=== PATIENT | male | born 1965 | race Caucasian/White ===

== ENCOUNTER 2017-04-22 19:26 | Inpatient (IN) | payer BC ==
[~2017-04-22] VITALS: Ht 177.8 cm; Wt 94.3 kg
--- NOTE | 2017-04-22 19:39 | NUR ---
TO BED 1 AMBULATORY C/O L SIDED CP WITH INTERMITTENT SOB ALL DAY. PT AAOX4 NO ACUTE DISTRESS NOTED, RESP EVEN AND UNLABORED. SKIN WARM, NONDIAPHORETIC. PLACE PT ON CARDAIC MONITORING, CONTINUOUS POX. ER MD AT BEDSIDE TO EVAL PT.
[2017-04-22 20:13] LABS: CALCIUM, SERUM 9.1 mg/dL (8.5-10.1); CARBON DIOXIDE 26 mmol/L (21-32); CHLORIDE 101 mmol/L (98-107); CREATININE 1.2 mg/dL (0.6-1.3); GLUCOSE 90 mg/dL (74-106); SODIUM SERUM 137 mmol/L (136-145); UREA NITROGEN, BLOOD 18 mg/dL (7-18)
[2017-04-22 20:15] LABS: BASOPHILS # (AUTO) 0.1 /CMM (0.0-0.2); BASOPHILS % (AUTO) 0.5 % (0.0-2.0); EOSINOPHILS # (AUTO) 0.1 /CMM (0.0-0.7); EOSINOPHILS % (AUTO) 1.4 % (0.0-6.0); HEMATOCRIT 42 % (39-51); HEMOGLOBIN 14.2 g/dL (13.5-17.5); LYMPHOCYTES # (AUTO) 2.5 /CMM (0.8-4.8); LYMPHOCYTES % (AUTO) 24.4 % (20.0-44.0); MEAN CORPUSCULAR HEMOGLOBIN 31 PG (26.0-33.0); MEAN CORPUSCULAR HGB CONC 34 g/dl (31.0-36.0); MEAN CORPUSCULAR VOLUME 90 fL (80-96); MONOCYTES # (AUTO) 1.2 /CMM (0.1-1.30); MONOCYTES % (AUTO) 11.3 % (2.0-12.0); NEUTROPHILS # (AUTO) 6.4 /CMM (1.8-8.9); NEUTROPHILS % (AUTO) 62.4 % (43.0-81.0); PLATELET COUNT (AUTO) 245 /CMM (150-450); RDW COEFFICIENT OF VARIATION 12.5 (11.5-15.0); RED BLOOD CELL COUNT(AUTO) 4.65 MIL/uL (4.5-6.0); WHITE BLOOD COUNT (AUTO) 10.2 K/uL (4.3-11.0)
[2017-04-22 20:18] LABS: INR 1.01 (0.87-1.13); PROTHROMBIN TIME 10.5 SECS (9.5-12.7)
[2017-04-22 20:21] LABS: TROPONIN I < 0.017 ng/mL (0.00-0.056)
[2017-04-22 20:26] LABS: ALANINE AMINOTRANSFERASE 124 U/L (12-78); ALBUMIN 4.2 g/dL (3.4-5.0); ALKALINE PHOSPHATASE 172 U/L (46-116); ASPARTATE AMINOTRANSFERASE 65 U/L (15-37); B-TYPE NATRIURETIC PEPTIDE 30 PG/ML (0-125); BILIRUBIN,DIRECT 0.1 mg/dL (0.0-0.2); BILIRUBIN,TOTAL 0.5 mg/dL (0.2-1.0); TOTAL PROTEIN, SERUM 7.8 g/dL (6.4-8.2)
--- NOTE | 2017-04-22 20:43 | NUR ---
PT TRANSPORTED TO RADIOLOGY FOR CT PULMONARY ANGIOGRAM.
--- NOTE | 2017-04-22 20:55 | NUR ---
PT BACK FROM RADIOLOGY. PENDING CT PULMONARY ANGIOGRAM RESULT.
--- NOTE | 2017-04-22 21:32 | NUR ---
RESP THERAPIST AT BEDSIDE.
--- NOTE | 2017-04-22 21:50 | NUR ---
ER SPOKE TO DR. CONRADO NUNO PT ADMISSION. REPORT CALLED TO REAL ESTATE TRANSACTION COORDINATOR FAWAD. WILL TRANSPORT PT VIA ACLS PROTOCOL.
[2017-04-22 22:25] VITALS: BP 127/75
--- NOTE | 2017-04-22 22:25 | NUR ---
RN NOTES RECEIVED PATIENT FROM ER FOR DX CHEST PAIN. AO X 3, ABLE TO MAKE NEEDS KNOWN. NO ACUTE DISTRESS NOTED. DENIES ANY PAIN AT THIS TIME. SKIN INTACT. TELE READING SR 64. IV SITE PATENT, INTACT; FLUSHED. PATIENT IS AMBULATORY. ON LOW BED WITH BILATERAL UPPER SIDE RAILS UP. CALL LIGHT WITHIN EASY REACH. WILL CONTINUE TO MONITOR.
[2017-04-22 22:46] VITALS: BP 127/75
[2017-04-23] VITALS: BP 119/72
[2017-04-23 04:00] VITALS: BP 116/63
--- NOTE | 2017-04-23 06:09 | NUR ---
RN NOTES PATIENT ASLEEP, EASILY AROUSABLE. RESPIRATIONS EVEN. NO SIGNS OF PAIN NOTED. KEPT NPO FOR US OF ABDOMEN. NEEDS ATTENDED. SAFETY PRECAUTIONS AND COMFORT MEASURES IN PLACE. WILL GIVE REPORT TO DAY SHIFT FOR CONTINUITY OF CARE.
[2017-04-23 06:48] LABS: BASOPHILS % (AUTO) 0.4 % (0.0-2.0); EOSINOPHILS # (AUTO) 0.2 /CMM (0.0-0.7); EOSINOPHILS % (AUTO) 2.8 % (0.0-6.0); HEMATOCRIT 39 % (39-51); HEMOGLOBIN 13.3 g/dL (13.5-17.5); LYMPHOCYTES # (AUTO) 1.7 /CMM (0.8-4.8); LYMPHOCYTES % (AUTO) 25.7 % (20.0-44.0); MEAN CORPUSCULAR HEMOGLOBIN 31 PG (26.0-33.0); MEAN CORPUSCULAR HGB CONC 34 g/dl (31.0-36.0); MEAN CORPUSCULAR VOLUME 90 fL (80-96); MONOCYTES # (AUTO) 0.8 /CMM (0.1-1.30); MONOCYTES % (AUTO) 12.1 % (2.0-12.0); NEUTROPHILS # (AUTO) 3.9 /CMM (1.8-8.9); PLATELET COUNT (AUTO) 213 /CMM (150-450); RDW COEFFICIENT OF VARIATION 12.5 (11.5-15.0); RED BLOOD CELL COUNT(AUTO) 4.31 MIL/uL (4.5-6.0); WHITE BLOOD COUNT (AUTO) 6.5 K/uL (4.3-11.0)
[2017-04-23 07:07] VITALS: BP 109/71
[2017-04-23 07:17] LABS: PROTHROMBIN TIME 10.7 SECS (9.5-12.7)
--- NOTE | 2017-04-23 07:30 | NUR ---
received pt. alert and oriented x4.no complaints offered.npo for ultrasound,
[2017-04-23 07:37] LABS: CALCIUM, SERUM 8.4 mg/dL (8.5-10.1); MAGNESIUM 1.8 mg/dL (1.8-2.4); PHOSPHORUS 3.9 mg/dL (2.5-4.9); POTASSIUM 3.9 mmol/L (3.5-5.1)
--- NOTE | 2017-04-23 08:00 | NUR ---
us tech called to determine time of arrival for pt,s ultrasound.pt. informed.
[2017-04-23] MEDS ORDERED: MULT-24 PO (09:39)
--- NOTE | 2017-04-23 10:40 | NUR ---
nuclear medical technologist here for pt.remains npo.pleasant.
--- NOTE | 2017-04-23 11:30 | NUR ---
Ladan MUNOZ IN-PLANS TO ORDER CARDIAC CONSULT.
[2017-04-23 11:40] LABS: APPEARANCE,URINE CLEAR (CLEAR); BILIRUBIN,URINE NEGATIVE (NEGATIVE); BLOOD, URINE NEGATIVE Ery/uL (NEGATIVE); COLOR,URINE YELLOW (YELLOW); KETONES,URINE TRACE (NEGATIVE); LEUKOCYTE ESTERASE ,URINE NEGATIVE (NEGATIVE); NITRITE, URINE NEGATIVE (NEGATIVE); PROTEIN,URINE NEGATIVE (NEGATIVE); UGLUCOSE NEGATIVE (NEGATIVE); UROBILINOGEN,URINE 0.2 EU/dL (0.2)
[2017-04-23 12:00] VITALS: BP 143/89
--- NOTE | 2017-04-23 13:00 | NUR ---
ULTRASOUND DONE-FOOD ORDERED.
[2017-04-23 13:36] LABS: BACTERIA,URINE Rare /HPF (None Seen); RBC,URINE 0-2 /HPF (0-2); SQUAMOUS EPITHELIAL CELL,UR Rare /HPF (None Seen); WBC,URINE 0-2 /HPF (0-3)
--- NOTE | 2017-04-23 14:00 | NUR ---
PT. INFORMED NURSE HE WAS LEAVING TODAY WHETHER HOUSE DETECTIVE CAME IN OR NOT.
--- NOTE | 2017-04-23 15:00 | NUR ---
Ladan MUNOZ CALLED REGARDING PT,S REQUEST AND [facility] DC IF CARDIAC Cesar SIMPSON.
[2017-04-23 16:00] VITALS: BP 123/75
--- NOTE | 2017-04-23 16:00 | NUR ---
DR. SANDERS IN TO SEE PT.OK TO DC.
--- NOTE | 2017-04-23 16:20 | NUR ---
DC INSTRUCTIONS GIVEN BELONGING SHEET SIGNED.HEP LOCK OUT,TELE Cesar HERNANDEZ.ALL INSTRUCTIONS GIVEN TO PT. TO FOLLOW UP WITH DR. SANDERS.WALKED TO [facility] ACCOMPANIED BY [employer] SUPERVISOR.TO DRIVE HIMSELF HOME.
== END 2017-04-23 16:23 | disposition home or self-care (01) | DRG 313 ==
LOC: ER 19:29 → EDSEX 19:29 → ER 22:32 → TELE 22:37
PROVIDERS: ADMIT Internal Medicine; ATTEND Internal Medicine
DX: R07.89 Other chest pain (principal); D68.59 Other primary thrombophilia; K76.0 Fatty (change of) liver, not elsewhere classified; E66.9 Obesity, unspecified; Z88.0 Allergy status to penicillin; Z82.49 Family history of ischemic heart disease and other diseases of the circulatory system; Z83.3 Family history of diabetes mellitus; Z87.891 Personal history of nicotine dependence; Z79.82 Long term (current) use of aspirin
CPT/HCPCS: 36415; 71010-TC; 76700-TC; 80048-TC; 80061-TC; 80076-TC; 80305; 81000-TC; 82150-TC; 83690-TC; 83735-TC; 83880; 84100-TC; 84484-TC; 85025-TC; 85610-TC; 85730-TC; 87081-TC; 93307-TC; 93971-TC; A4606; J7030; J7050; Q9967; Z7610